=== PATIENT | female | born 1980 ===

== ENCOUNTER 2022-05-17 20:47 | Inpatient (IN) ==
[2022-05-17] MEDS ORDERED: miSOPROStoL 200 MCG TABLET RECTAL PRN (22:16)
[2022-05-17] MEDS ORDERED: CARBOPROST TROMETHAMINE 250 MCG/ML AMP IM PRN (22:16)
[2022-05-17] MEDS ORDERED: METHYLERGONOVINE 0.2 MG/1 ML AMP IM PRN (22:16)
[2022-05-17] MEDS ORDERED: TRANEXAMIC ACID 1,000 MG in SODIUM CHLORIDE 0.9% 100 ML IV PRN (22:16)
[2022-05-17] MEDS ORDERED: CITRIC ACID/SODIUM CITRATE 30 ML UDCUP PO PRN (22:16)
[2022-05-17] MEDS ORDERED: FAMOTIDINE 20 MG/2 ML VIAL IV PRN (22:16)
[2022-05-17] MEDS: LACTATED RINGERS 1,000 ML IV SCH (22:37)
[2022-05-17 22:42] LABS: Basophils % 0.2 % (0.0-0.8); Eosinophils # 0.1 10*3/uL (0.0-0.87); Eosinophils % 0.6 % (0.00-10.9); Hematocrit 29.9 VOL% (35.7-47.0); Hemoglobin 9.6 GM/DL (12.0-16.0); Immature Granulocytes % 0.5 %; Immature Granulocytes Absolute 0.05 #; Lymphocytes # 2.4 10*3/uL (1.4-4.0); Lymphocytes % 24.8 % (21.3-54.2); Mean Corpuscular HGB Conc 32.1 GM/DL (32-36); Mean Corpuscular Volume 78.7 FL (87-102); Mean Platelet Volume 9.6 FL (9.6-12.0); Monocytes # 0.6 10*3/uL (0.11-0.8); Monocytes % 5.8 % (1.7-12.7); Neutrophils % 68.1 % (38.7-73.9); Platelet Count 299 T/CUMM (130-400); White Blood Count 9.8 T/CUMM (4-12)
[2022-05-17] MEDS: AMPICILLIN INJ 2,000 MG in SODIUM CHLORIDE 0.9% 100 ML IV SCH (22:52)
[2022-05-17 23:04] LABS: Albumin 2.8 G/DL (3.4-5.0); Bilirubin,Total 0.4 MG/DL (0.20-1.00); Calcium 9.2 MG/DL (8.5-10.1); Osmolality,Calculated 272.7 MOS/KG (273-304); Potassium 3.6 MMOL/L (3.5-5.1); Total Protein 7.1 G/DL (6.4-8.2)
[2022-05-17] MEDS: BETAMETH SODIUM PHOS/ACETATE 30 MG/5 ML VIAL IM SCH (23:17)
[2022-05-18] MEDS ORDERED: OXYTOCIN/LR 30 UNIT/1,000 ML BAG IV PRN (01:27)
[2022-05-18] MEDS: AMPICILLIN INJ 2,000 MG in SODIUM CHLORIDE 0.9% 100 ML IV SCH ×4 (04:40→22:53)
[2022-05-18] MEDS ORDERED: ACETAMINOPHEN 500 MG TABLET PO ONE (05:00)
[2022-05-18 07:27] LABS: Basophils % 0.1 % (0.0-0.8); Hematocrit 28.6 VOL% (35.7-47.0); Immature Granulocytes % 0.5 %; Immature Granulocytes Absolute 0.04 #; Lymphocytes # 1.1 10*3/uL (1.4-4.0); Lymphocytes % 12.2 % (21.3-54.2); Mean Corpuscular HGB Conc 31.5 GM/DL (32-36); Mean Platelet Volume 9.6 FL (9.6-12.0); Monocytes # 0.2 10*3/uL (0.11-0.8); Monocytes % 1.7 % (1.7-12.7); Neutrophils % 85.5 % (38.7-73.9); Platelet Count 281 T/CUMM (130-400); Red Blood Count 3.62 MC/CUMM (3.8-5.5); White Blood Count 8.8 T/CUMM (4-12)
[2022-05-18] MEDS ORDERED: GLUCAGON 1 MG VIAL IM PRN (10:22)
[2022-05-18] MEDS ORDERED: DEXTROSE 10% 250 ML BAG IV PRN (10:26)
[2022-05-18] MEDS: BETAMETH SODIUM PHOS/ACETATE 30 MG/5 ML VIAL IM SCH (11:28)
[2022-05-18] MEDS: INSULIN REGULAR 100 UNIT/ML SUBCUT SCH ×2 (17:06→18:35)
[2022-05-19] MEDS: INSULIN REGULAR 100 UNIT/ML SUBCUT SCH ×4 (02:38→18:09)
[2022-05-19] MEDS: AMPICILLIN INJ 2,000 MG in SODIUM CHLORIDE 0.9% 100 ML IV SCH ×2 (04:55→10:45)
[2022-05-19] MEDS: LACTATED RINGERS 1,000 ML IV SCH ×2 (04:56)
[2022-05-19] MEDS ORDERED: ONDANSETRON 4 MG/2 ML VIAL ONE (06:46)
[2022-05-19] MEDS ORDERED: PHENYLEPHRINE 1 MG/10 ML SYRINGE IV ONE (06:46)
[2022-05-19] MEDS ORDERED: ACETAMINOPHEN INJ 1,000 MG/100 ML VIAL IV ONE (06:47)
[2022-05-19] MEDS ORDERED: buprenorphine HCL 0.3 MG/ML VIAL ONE (06:47)
[2022-05-19] MEDS ORDERED: KETOROLAC 30 MG/1 ML VIAL ONE (06:47)
[2022-05-19] MEDS ORDERED: OXYTOCIN 10 UNIT/ML VIAL IM ONE ×2 (07:00→22:30)
[2022-05-19 07:07] LABS: Basophils % 0.2 % (0.0-0.8); Hematocrit 26.8 VOL% (35.7-47.0); Hemoglobin 8.5 GM/DL (12.0-16.0); Lymphocytes # 1.9 10*3/uL (1.4-4.0); Lymphocytes % 19.7 % (21.3-54.2); Mean Corpuscular HGB Conc 31.7 GM/DL (32-36); Mean Corpuscular Volume 79.1 FL (87-102); Mean Platelet Volume 9.4 FL (9.6-12.0); Monocytes # 0.7 10*3/uL (0.11-0.8); Monocytes % 7.3 % (1.7-12.7); Neutrophils % 71.8 % (38.7-73.9); Platelet Count 278 T/CUMM (130-400); Red Blood Count 3.39 MC/CUMM (3.8-5.5); Red Cell Distribution Width 14.2 % (9.3-17.3); White Blood Count 9.7 T/CUMM (4-12)
[2022-05-19] MEDS ORDERED: SODIUM CHLORIDE 0.9% 1,000 ML IV PRN (07:44)
[2022-05-19] MEDS ORDERED: ceFAZolin 3,000 MG in SYRINGE 1 EACH IV SCH (08:00)
[2022-05-19] MEDS ORDERED: propofoL 200 MG/20 ML VIAL IV ONE (10:50)
[2022-05-19] MEDS ORDERED: SODIUM CHLORIDE 0.9% 1,000 ML IV ONE (10:51)
[2022-05-19 10:55] LABS: Cord Arterial Blood HCO3 22.3 MMOL/L
[2022-05-19 10:57] LABS: Cord Venous Blood HCO3 22.9 MMOL/L; Cord Venous Blood PCO2 43.2 MMHG; Cord Venous Blood PO2 32.5
[2022-05-19 11:04] LABS: Mucus,Urine Few /LPF (Occasional); RBC,Urine 1 /HPF (0-4); Squamous Epithelial Cell,Urine Occasional /HPF (0-10)
[2022-05-19 11:05] LABS: Bilirubin,Urine Negative (Negative); Blood, Urine Negative (Negative); Glucose,Urine (UA) Negative (Negative); Ketones,Urine Negative (Negative); Nitrite,Urine Negative (Negative); Protein,Urine 30 mg/dL (Negative); Urine Appearance Clear (Clear); Urine Color Yellow (Yellow); Urine Specific Gravity 1.025 (1.001-1.035)
[2022-05-19] MEDS ORDERED: GLUCAGON 1 MG VIAL IM PRN ×2 (11:17→17:55)
[2022-05-19] MEDS ORDERED: SIMETHICONE CHEW 80 MG TABLET PO PRN (11:17)
[2022-05-19] MEDS ORDERED: DEXTROSE 50% 25 GM/50 ML VIAL IV PRN ×2 (11:17→17:55)
[2022-05-19] MEDS ORDERED: RHO(D) IMMUNE GLOBULIN 300 MCG SYRINGE IM ONE (11:17)
[2022-05-19] MEDS ORDERED: ACETAMINOPHEN 325 MG TABLET PO PRN (11:17)
[2022-05-19] MEDS ORDERED: ONDANSETRON 4 MG/2 ML VIAL IV PRN (11:17)
[2022-05-19] MEDS ORDERED: OXYTOCIN/LR 20 UNIT/1,000 ML BAG IV ONE ×2 (11:17→21:37)
[2022-05-19] MEDS ORDERED: LACTATED RINGERS 1,000 ML IV SCH (11:30)
[2022-05-19 16:24] LABS: Basophils % 0.1 % (0.0-0.8); Hematocrit 28.4 VOL% (35.7-47.0); Immature Granulocytes % 0.5 %; Immature Granulocytes Absolute 0.07 #; Lymphocytes # 2.1 10*3/uL (1.4-4.0); Lymphocytes % 14.4 % (21.3-54.2); Mean Corpuscular HGB Conc 31.7 GM/DL (32-36); Mean Corpuscular Volume 80.2 FL (87-102); Mean Platelet Volume 9.8 FL (9.6-12.0); Monocytes # 1.1 10*3/uL (0.11-0.8); Monocytes % 7.6 % (1.7-12.7); Neutrophils % 77.4 % (38.7-73.9); Platelet Count 288 T/CUMM (130-400); Red Blood Count 3.54 MC/CUMM (3.8-5.5); White Blood Count 14.2 T/CUMM (4-12)
[2022-05-19] MEDS: ACETAMINOPHEN 500 MG TABLET PO SCH ×2 (17:09→22:43)
[2022-05-19] MEDS: KETOROLAC 30 MG/1 ML VIAL IV SCH ×2 (17:10→21:54)
[2022-05-19] MEDS ORDERED: DEXTROSE 10% 250 ML BAG IV PRN (17:55)
[2022-05-19] MEDS ORDERED: METHYLERGONOVINE 0.2 MG/1 ML AMP IM PRN (21:37)
[2022-05-19] MEDS ORDERED: TRANEXAMIC ACID 1,000 MG in SODIUM CHLORIDE 0.9% 100 ML IV PRN (21:37)
[2022-05-19] MEDS ORDERED: CARBOPROST TROMETHAMINE 250 MCG/ML AMP IM PRN (21:37)
[2022-05-19] MEDS ORDERED: miSOPROStoL 200 MCG TABLET RECTAL PRN (21:37)
[2022-05-19] MEDS: IBUPROFEN 800 MG TABLET PO PRN (21:54)
[2022-05-19] MEDS: DOCUSATE SODIUM 100 MG CAPSULE PO SCH (21:55)
[2022-05-19] MEDS ORDERED: CITRIC ACID/SODIUM CITRATE 30 ML UDCUP PO ONE (22:00)
[2022-05-19] MEDS ORDERED: FAMOTIDINE 20 MG/2 ML VIAL IV ONE (22:00)
[2022-05-19] MEDS ORDERED: OXYTOCIN/LR 30 UNIT/1,000 ML BAG IV ONE (23:00)
[2022-05-20] MEDS: INSULIN REGULAR 100 UNIT/ML SUBCUT SCH ×6 (00:30→23:48)
[2022-05-20] MEDS ORDERED: ceFAZolin 2,000 MG in SODIUM CHLORIDE 0.9% 100 ML IV SCH (02:00)
[2022-05-20] MEDS ORDERED: ceFAZolin 2,000 MG/50 ML DUPLEX IV SCH (02:00)
[2022-05-20 03:56] LABS: Basophils % 0.2 % (0.0-0.8); Eosinophils % 0.4 % (0.00-10.9); Hematocrit 26.4 VOL% (35.7-47.0); Hemoglobin 8.3 GM/DL (12.0-16.0); Immature Granulocytes % 0.7 %; Immature Granulocytes Absolute 0.08 #; Lymphocytes # 2.1 10*3/uL (1.4-4.0); Lymphocytes % 19.1 % (21.3-54.2); Mean Corpuscular HGB Conc 31.4 GM/DL (32-36); Mean Corpuscular Volume 79.5 FL (87-102); Mean Platelet Volume 9.7 FL (9.6-12.0); Monocytes # 0.9 10*3/uL (0.11-0.8); Monocytes % 8.1 % (1.7-12.7); Neutrophils % 71.5 % (38.7-73.9); Platelet Count 242 T/CUMM (130-400); Red Blood Count 3.32 MC/CUMM (3.8-5.5); Red Cell Distribution Width 13.9 % (9.3-17.3); White Blood Count 10.8 T/CUMM (4-12)
[2022-05-20] MEDS: KETOROLAC 30 MG/1 ML VIAL IV SCH (04:51)
[2022-05-20] MEDS: ACETAMINOPHEN 500 MG TABLET PO SCH (04:51)
[2022-05-20] MEDS: MULTIVITAMIN (PRENATAL) TABLET PO SCH (09:23)
[2022-05-20] MEDS: DOCUSATE SODIUM 100 MG CAPSULE PO SCH ×2 (09:23→21:20)
[2022-05-20] MEDS: IBUPROFEN 800 MG TABLET PO PRN ×2 (12:44→21:57)
[2022-05-20] MEDS: MAGNESIUM HYDROXIDE SUSP 30 ML UDCUP PO PRN (21:20)
[2022-05-21] MEDS: INSULIN REGULAR 100 UNIT/ML SUBCUT SCH (06:08)
[2022-05-21] MEDS: MAGNESIUM HYDROXIDE SUSP 30 ML UDCUP PO PRN (09:30)
[2022-05-21] MEDS: MULTIVITAMIN (PRENATAL) TABLET PO SCH (09:30)
[2022-05-21] MEDS: DOCUSATE SODIUM 100 MG CAPSULE PO SCH (09:30)
[2022-05-21 11:46] VITALS: BP 126/66
[2022-05-21] MEDS ORDERED: metFORMIN 850 MG TABLET PO ONE (11:53)
[2022-05-21] MEDS ORDERED: metFORMIN 500 MG TABLET PO ONE (12:08)
== END 2022-05-21 12:20 | disposition home or self-care (01) | DRG 788 ==
LOC: N.LDOUT 20:47 → N.LD 20:52 → N.OB 05-19 22:00
PROVIDERS: ADMIT Obstetrics & Gynecology; ATTEND Obstetrics & Gynecology
PROC: LDCSECT (ICD-10-PCS; 2022-05-19 08:30)